=== PATIENT | male | born 1935 | race Caucasian/White ===

== ENCOUNTER 2022-01-01 09:41 | Emergency (ER) | payer MEDICARE, SELFPAY ==
[2022-01-01 09:45] VITALS: BP 156/72; PULSE 77; RESP 18; TEMP 36.6; O2SAT 97
--- NOTE | 2022-01-01 10:53 | ED_ITS ---
HPI - Epistaxis General Chief complaint: Nasal Problem Stated complaint: Epistaxis Time Seen by Provider: 01/01/22 10:43 Source: patient and EMS Mode of arrival: EMS History of Present Illness HPI Narrative: Patient is an 86-year-old male history of hypertension diabetes on aspirin presenting today with epistaxis. He said it started this morning around 6:00 a.m. she had his 's nasal plant she has been using. Every time he tried ta steven off it started bleeding again. He used cotton ball and put up his left nostril. The clamp is now been on in the emergency department for 1 hour. He denies any blood dripping down his throat. He has not previously had nosebleeds he has not taken his blood pressure medications this morning either. Related Data Home Medications Medication Instructions Recorded Confirmed amlodipine 10 mg tablet mg 01/01/22 aspirin 325 mg tablet mg 01/01/22 atorvastatin 10 mg tablet mg 01/01/22 carvedilol 25 mg tablet mg 01/01/22 glipizide 5 mg tablet, extended mg PO 01/01/22 release 24 hr isosorbide mononitrate 30 mg mg PO 01/01/22 tablet,extended release 24 hr losartan 100 mg tablet mg 01/01/22 metformin 500 mg tablet mg 01/01/22 Allergies Allergy/AdvReac Type Severity Reaction Status Date / Time No Known Drug Allergies Allergy Verified 01/01/22 10:15 Review of Systems Review of Systems Narrative: GENERAL: Denies chills,fever HEENT: See HPI RESPIRATORY: Denies dyspnea, cough, wheezing CARDIOVASCULAR: Denies chest pain, palpitations GASTROINTESTINAL: Denies nausea, vomiting MUSCULOSKELETAL: Denies extremity pain, injury SKIN: No rash, no laceration, no pruritus NEUROLOGIC: Denies weakness, dizziness, headache, numbness 8 point review of systems is negative except for those stated above and HPI Patient History Medical History Diabetes Hypertension Social History Smoking Status: Never smoker Smoking Status: Never smoker alcohol intake frequency: holidays/special occasions only Substance Use Type: does not use Exam Initial Vital Signs Initial Vital Signs: Vital Signs Temperature 97.8 F 01/01/22 09:45 Pulse Rate 77 01/01/22 09:45 Respiratory Rate 18 01/01/22 09:45 Blood Pressure 156/72 H 01/01/22 09:45 Pulse Oximetry 97 01/01/22 09:45 Oxygen Delivery Method 01/01/22 09:45 GENERAL: Well-appearing 86-year-old male HEENT: Head atraumatic,EOMI, pupils reactive, face symmetric, moist mucous membranes NOSE: The nasal clamp is removed no epistaxis CARDIOVASCULAR: Regular rate and rhythm without murmurs, rubs or gallops. RESPIRATORY: Breath sounds equal bilaterally, no wheezes rales or rhonchi. ABDOMEN: Soft, nontender. Normoactive bowel sounds all 4 quadrants. No guarding or rebound. EXTREMITIES: Normal range of motion, no clubbing or edema. Neurovascularly intact NEUROLOGICAL: Alert and oriented x4 SKIN: Warm, dry, no laceration, no petechiae, no rashes or lesions. Course Vital Signs Vital signs: Vital Signs - 8 hr 01/01/22 09:45 01/01/22 11:34 Temperature 97.8 F Pulse Rate 77 77 Respiratory Rate 18 18 Blood Pressure 156/72 H 147/92 H Pulse Oximetry 97 98 Oxygen Delivery Method Room Air Room Air MDM - Epistaxis MDM Narrative Medical decision making narrative: Patient has had clamp on for some time. It is removed I have examined both nostrils there is no active bleeding remains off and stable. He is drinking fluid. Discussed what to do if it this should happen again and things to prevent it. At this time no further intervention from the emergency department Discharge Plan Departure Patient Disposition: Home Clinical Impression: Epistaxis Instructions: DI for Nosebleed Activity Restrictions/Additional Instructions: *You have been diagnosed with epistaxis *What to do: Nosebleed today is probably due from dry air, recommend using Vaseline or antibiotic ointment in both nares 1 or 2 times daily humidifier may also help. If nosebleed she started again use nasal clamp. *Continue to take medications as directed *Follow up with your primary care provider in 2-3 days or call [phone] *Return to ER if you should have persistent nose bleed slightly recommend for 60 minute or any new, worsening or concerning symptoms Prescriptions: No Action metformin 500 mg tablet carvedilol 25 mg tablet atorvastatin 10 mg tablet isosorbide mononitrate 30 mg tablet extended release 24 hr PO glipizide 5 mg tablet extended release 24hr PO amlodipine 10 mg tablet losartan 100 mg tablet aspirin 325 mg Tablet Referrals: Maggie Pleitez PA-C [Primary Care Provider] - Visit Report Forms: Patient Portal/API
--- NOTE | 2022-01-01 11:32 | PC.NURSE ---
Dr. Cuevas assessed patient prior to my arrival. first contact is discharge with patient.
[2022-01-01 11:34] VITALS: BP 147/92; PULSE 77; RESP 18; O2SAT 98
== END 2022-01-01 11:35 | disposition home or self-care (01) ==
PROVIDERS: Emergency Provider Emergency Medicine; PCP Physician Assistant
DX: R04.0 Epistaxis (principal)
CPT/HCPCS: 99281

== ENCOUNTER 2022-01-10 13:51 | Emergency (ER) | payer MEDICARE, SELFPAY ==
--- NOTE | 2022-01-10 13:52 | DI.RAD.S_ITS ---
PROCEDURE: XR CHEST 1V INDICATIONS: chest pain TECHNIQUE: One view of the chest was acquired. COMPARISON: [facility], CR, XR CHEST 1 VIEW, 09/16/2021, 11:52. [facility], CR, CHEST 2 VIEW, 08/16/2015, 10:57. FINDINGS: Surgical changes and devices: None. Lungs and pleura: Mild hazy opacity at the left lung base. No pleural effusions or pneumothorax. Mediastinum: Mediastinal contours appear normal. Heart size is at the upper limits of normal. Bones and chest wall: No suspicious bony lesions. Overlying soft tissues appear unremarkable. IMPRESSION: Mild hazy opacity at the left lung base. Favor atelectasis over pneumonia. Dictated by: Cecil Botello M.D. on 01/10/2022 at 14:32 Approved by: Cecil Botello M.D. on 01/10/2022 at 14:34
[2022-01-10 14:08] LABS: Add Manual Diff / Slide Review NO; Basophils Absolute Auto 0 /uL (0-100); Basophils Percent Auto 0.7 % (0-2); Eosinophils Absolute Auto 300 /uL (0-450); Eosinophils Percent Auto 5.5 % (2-4); Hematocrit 31.9 % (41-53); Hemoglobin 11.2 g/dL (13.5-17.5); Lymphocytes Absolute Auto 900 /uL (1100-4500); Lymphocytes Percent Auto 15.2 % (25-40); Mean Corpuscular HGB Conc 35.1 % (30-36); Mean Corpuscular Hemoglobin 34.4 PG (26-34); Monocytes Absolute Auto 1000 /uL (0-900); Monocytes Percent Auto 17.4 % (3-14); Neutrophils Absolute Auto 3600 /uL (1500-7000); Neutrophils Percent Auto 61.2 % (50-75); Platelet Count 232 X10^3/uL (150-400); Red Blood Cell Count 3.25 X10^6/uL (4.5-5.9); White Blood Cell Count 5.9 X10^3/uL (4.5-11.0)
[2022-01-10 14:28] LABS: HCO3 VBG 20 mmol/L (23-28); Oxygen Saturation VBG 99 % (70-75); PCO2 VBG 34.8 mmHg (45-50); PO2 VBG 169 mmHg (35-45); Total CO2 VBG 21 mmol/L (24-29); pH VBG 7.36 (7.33-7.43)
[2022-01-10 14:30] LABS: HEMOLYSIS < 15 (0-50)
[2022-01-10 14:37] LABS: Alanine Aminotransferase 19 IU/L (<50); Albumin 4.3 g/dL (3.5-5.0); Albumin Globulin Ratio 1.6 (1.0-2.8); Alkaline Phosphatase 57 U/L (38-126); Aspartate Aminotransferase 21 IU/L (17-59); Bilirubin Total 0.3 mg/dL (0.2-1.3); Blood Urea Nitrogen 31 mg/dL (9-20); Calcium 9.1 mg/dL (8.4-10.2); Carbon Dioxide 19 mmol/L (22-32); Chloride 97 mmol/L (98-107); Creatine Kinase 66 U/L (55-170); Estimated Glomerular Filt Rate > 60 mL/min (>60); Globulin 2.7 g/dL (1.7-4.1); Glucose 212 mg/dL (80-110); Lipase 201 U/L (23-300); Potassium 5.1 mmol/L (3.4-5.1); Sodium 128 mmol/L (137-145)
[2022-01-10 14:48] LABS: Troponin I < 0.012 ng/mL (0.01-0.034)
[2022-01-10] MEDS: SODIUM CHLORIDE 0.9% 1,000 ML 500 ML IV (15:00)
--- NOTE | 2022-01-10 15:59 | ED.DIZZY ---
HPI - Dizziness General Chief Complaint: Dizziness Stated Complaint: High blood sugar,dizzy,diaphoretic Time Seen by Provider: 01/10/22 13:52 Source: patient, family (Daughter) and old records reviewed Mode of arrival: EMS Limitations: no limitations History of Present Illness HPI Narrative: This is an 86-year-old male with history of type 2 diabetes, hypertension, dyslipidemia with episode of feeling clammy, lightheaded without syncope, nauseated with no chest pressure or shortness of breath. Patient states he did not have any tunnel vision or blackening of his vision. He states he did have any emesis. No abdominal, black or flank pain. No new swelling of his extremities. No diarrhea, no constipation, no dysuria urgency or frequency. Patient states he is had episodes in the past most recently 6 weeks ago where his blood pressure was quite low he was kept overnight at [facility] had attempted stress testing but did not meet physical qualifications, he had a Holter monitor they have not received any results but have not been told that there was anything wrong. Had episodes a couple times over the past several years with 1 resulting in syncope. Patient states his glucose typically runs 130-140 at home. He is not had any new medication changes. He is not had any dosages changes. He denies any cardiac history no cardiac stents, no prior surgeries. No known drug allergies. No tobacco, alcohol once nightly, none today. No illicit. He is accompanied by his daughter. Related Data Home Medications Medication Instructions Recorded Confirmed amlodipine 10 mg tablet mg 01/01/22 aspirin 325 mg tablet mg 01/01/22 atorvastatin 10 mg tablet mg 01/01/22 carvedilol 25 mg tablet mg 01/01/22 glipizide 5 mg tablet, extended mg PO 01/01/22 release 24 hr isosorbide mononitrate 30 mg mg PO 01/01/22 tablet,extended release 24 hr losartan 100 mg tablet mg 01/01/22 metformin 500 mg tablet mg 01/01/22 Allergies Allergy/AdvReac Type Severity Reaction Status Date / Time No Known Drug Allergies Allergy Verified 01/01/22 10:15 Review of Systems Review of Systems ROS Unobtainable: All systems reviewed & are unremarkable except as noted in HPI and below Patient History Medical History Diabetes Hypertension Social History Smoking Status: Never smoker Smoking Status: Never smoker alcohol intake frequency: holidays/special occasions only Substance Use Type: does not use Exam Narrative Exam Narrative: GENERAL: Alert and oriented x three, elderly male in mild distress. No diaphoresis on exam. HEENT: Head normocephalic, atraumatic, EOMI, pupils reactive, face symmetric, moist mucous membranes NECK: Supple, full range of motion CARDIOVASCULAR: Regular rate and rhythm without murmurs, rubs or gallops. RESPIRATORY: Breath sounds equal bilaterally, no wheezes rales or rhonchi. Tachypnea accessory muscle use. ABDOMEN: Soft, nontender. Normoactive bowel sounds all 4 quadrants. No guarding or rebound, rigidity, no mass, no pulsatile mass. : No CVA tenderness EXTREMITIES: Normal range of motion, no clubbing or edema. Neurovascularly intact NEUROLOGICAL: Cranial nerves II through XII grossly intact. Moving all extremities SKIN: Warm, dry, no petechiae, no rashes or lesions. Initial Vital Signs Initial Vital Signs: Vital Signs Temperature 98.8 F 01/10/22 16:15 Pulse Rate 76 01/10/22 16:15 Respiratory Rate 18 01/10/22 16:15 Blood Pressure 139/70 01/10/22 16:15 Pulse Oximetry 97 01/10/22 16:15 Oxygen Delivery Method 01/10/22 16:15 Course Orders Ordered: Discontinued Medications Sodium Chloride (Normal Saline 0.9%) 1,000 mls @ 500 mls/hr IV BOLUS ONE Stop: 01/10/22 15:52 Last Infusion: 01/10/22 15:59 Dose: 0 mls/hr Documented By: Admin: 01/10/22 15:00 Dose: 500 mls/hr Documented By: EDITA Vital Signs Vital signs: Vital Signs - 8 hr 01/10/22 16:15 01/10/22 16:23 Temperature 98.8 F Pulse Rate 76 74 Respiratory Rate 18 16 Blood Pressure 139/70 137/75 Pulse Oximetry 97 97 Oxygen Delivery Method Room Air MDM - Dizziness Lab Data Result diagrams: 01/10/22 13:50 01/10/22 13:50 Labs: Lab Results 01/10/22 01/10/22 01/10/22 Range/Units 13:50 13:50 14:05 WBC 5.9 (4.5-11.0) X10^3/uL RBC 3.25 L (4.5-5.9) X10^6/uL Hgb 11.2 L (13.5-17.5) g/dL Hct 31.9 L (41-53) % MCV 98.0 (80-100) fL MCH 34.4 H (26-34) PG MCHC 35.1 (30-36) % RDW 14.0 (11.6-14.8) % Plt Count 232 (150-400) X10^3/uL Neut % (Auto) 61.2 (50-75) % Lymph % (Auto) 15.2 L (25-40) % [place] % (Auto) 17.4 H (3-14) % Eos % (Auto) 5.5 H (2-4) % Baso % (Auto) 0.7 (0-2) % Neut # (Auto) 3600 (9025-7255) /uL Lymph # (Auto) 900 L (0219-8766) /uL [place] # (Auto) 1000 H (0-900) /uL Eos # (Auto) 300 (0-450) /uL Baso # (Auto) 0 (0-100) /uL VBG pH 7.36 (7.33-7.43) VBG pCO2 34.8 L (45-50) mmHg VBG pO2 169 H (35-45) mmHg VBG HCO3 20 L (23-28) mmol/L VBG Total CO2 21 L (24-29) mmol/L VBG O2 Saturation 99 H (70-75) % VBG Base Excess -6.0 L (0-4) mmol/L Sodium 128 L (137-145) mmol/L Potassium 5.1 (3.4-5.1) mmol/L Chloride 97 L (98-107) mmol/L Carbon Dioxide 19 L (22-32) mmol/L BUN 31 H (9-20) mg/dL Creatinine 1.07 (0.66-1.25) mg/dL Estimated GFR > 60 (>60) mL/min BUN/Creatinine Ratio 29.0 H (6-22) Glucose 212 H (80-110) mg/dL Calcium 9.1 (8.4-10.2) mg/dL Total Bilirubin 0.3 (0.2-1.3) mg/dL AST 21 (17-59) IU/L ALT 19 (<50) IU/L Alkaline Phosphatase 57 (38-126) U/L Total Creatine Kinase 66 (55-170) U/L CK-MB (CK-2) TNP CK-MB (CK-2) Rel Index TNP Troponin I < 0.012 (0.01-0.034) ng/mL Total Protein 7.0 (6.3-8.2) g/dL Albumin 4.3 (3.5-5.0) g/dL Globulin 2.7 (1.7-4.1) g/dL Albumin/Globulin Ratio 1.6 (1.0-2.8) Lipase 201 (23-300) U/L Urine Color Urine Appearance Urine pH (4.5-8.0) Ur Specific [place] (1.000-1.035) Urine Protein (Negative) Urine Glucose (UA) (Negative) g/dL Urine Ketones (NEGATIVE) Urine Occult Blood (Negative) Urine Nitrate (Negative) Urine Bilirubin (NEGATIVE) Urine Urobilinogen (0.2) E.U./dL Ur Leukocyte Esterase (NEGATIVE) Urine RBC (0-5/HPF) Urine WBC (0-5/HPF) Urine Bacteria (None) Ur Culture Indicated? Ketones 0.40 H (<0.27) mmol/L SARS-CoV-2 (PCR) (Negative) 01/10/22 01/10/22 01/10/22 Range/Units 15:51 16:20 17:08 WBC (4.5-11.0) X10^3/uL RBC (4.5-5.9) X10^6/uL Hgb (13.5-17.5) g/dL Hct (41-53) % MCV (80-100) fL MCH (26-34) PG MCHC (30-36) % RDW (11.6-14.8) % Plt Count (150-400) X10^3/uL Neut % (Auto) (50-75) % Lymph % (Auto) (25-40) % [place] % (Auto) (3-14) % Eos % (Auto) (2-4) % Baso % (Auto) (0-2) % Neut # (Auto) (5646-6673) /uL Lymph # (Auto) (3000-9865) /uL [place] # (Auto) (0-900) /uL Eos # (Auto) (0-450) /uL Baso # (Auto) (0-100) /uL VBG pH (7.33-7.43) VBG pCO2 (45-50) mmHg VBG pO2 (35-45) mmHg VBG HCO3 (23-28) mmol/L VBG Total CO2 (24-29) mmol/L VBG O2 Saturation (70-75) % VBG Base Excess (0-4) mmol/L Sodium (137-145) mmol/L Potassium (3.4-5.1) mmol/L Chloride (98-107) mmol/L Carbon Dioxide (22-32) mmol/L BUN (9-20) mg/dL Creatinine (0.66-1.25) mg/dL Estimated GFR (>60) mL/min BUN/Creatinine Ratio (6-22) Glucose (80-110) mg/dL Calcium (8.4-10.2) mg/dL Total Bilirubin (0.2-1.3) mg/dL AST (17-59) IU/L ALT (<50) IU/L Alkaline Phosphatase (38-126) U/L Total Creatine Kinase (55-170) U/L CK-MB (CK-2) CK-MB (CK-2) Rel Index Troponin I < 0.012 (0.01-0.034) ng/mL Total Protein (6.3-8.2) g/dL Albumin (3.5-5.0) g/dL Globulin (1.7-4.1) g/dL Albumin/Globulin Ratio (1.0-2.8) Lipase (23-300) U/L Urine Color Yellow Urine Appearance Clear Urine pH 5.0 (4.5-8.0) Ur Specific [place] <=1.005 (1.000-1.035) Urine Protein Negative (Negative) Urine Glucose (UA) Trace H (Negative) g/dL Urine Ketones Negative (NEGATIVE) Urine Occult Blood Negative (Negative) Urine Nitrate Negative (Negative) Urine Bilirubin Negative (NEGATIVE) Urine Urobilinogen 0.2 (0.2) E.U./dL Ur Leukocyte Esterase Negative (NEGATIVE) Urine RBC None seen (0-5/HPF) Urine WBC None seen (0-5/HPF) Urine Bacteria None seen (None) Ur Culture Indicated? Cult not indicated Ketones (<0.27) mmol/L SARS-CoV-2 (PCR) Negative (Negative) Point of Care Testing Glucose POC 180 Imaging Data Chest x-ray: Radiologist's Impression: Close Chest X-Ray (Signed) Cecil Botello - 01/10/22 Launch?Image [address] [address] XRay Report Signed Patient: Raul Moreno Jr MR#: [id number] : 1935 Acct:[id number] Age/Sex: 86 / M Date of Service: 01/10/22 Loc: ED Accession Number: [id number] ?? Procedure: XR chest 1V Ordering Provider: Niya Pedraza D.O. PROCEDURE:? XR CHEST 1V ? INDICATIONS:? chest pain ? TECHNIQUE:? One view of the chest was acquired.? ? COMPARISON:? [facility], CR, XR CHEST 1 VIEW, 09/16/2021, 11:52.? [facility], CR, CHEST 2 VIEW, 08/16/2015, 10:57. ? FINDINGS:? ? Surgical changes and devices:? None.? ? Lungs and pleura:? Mild hazy opacity at the left lung base.? No pleural effusions or pneumothorax.? ? Mediastinum:? Mediastinal contours appear normal.? Heart size is at the upper limits of normal.? ? Bones and chest wall:? No suspicious bony lesions.? Overlying soft tissues appear unremarkable.? ? IMPRESSION:? Mild hazy opacity at the left lung base.? Favor atelectasis over pneumonia.? ? ? Dictated by: Cecil Botello M.D. on 01/10/2022 at 14:32 ? ? Approved by: Cecil Botello M.D. on 01/10/2022 at 14:34? ECG Data Attestation: I personally reviewed and interpreted this ECG as follows: Prior ECG tracings: not available for review Interpretation: Yet sinus rhythm with first-degree AV block, incomplete right bundle-branch. Rate of 65 [place] 210 QRS of 102 and QTC of 416. No acute ST changes appreciated. No priors for comparison. MDM Narrative Medical decision making narrative: This is an 86-year-old male who comes emergency department with episode of lightheadedness, diaphoresis and nausea that resolved. Patient is mildly hyperglycemic, no signs of DKA. No obvious cardiac, infectious or pulmonary causes found her his symptoms. Chest x-ray showed questionable pneumonia versus atelectasis but patient has been completely asymptomatic after discussion he defers starting any oral antibiotics when we discussed risks versus benefits. Patient had some episodes in the past which have been spaced out he has seen Cardiology for this as well. Discussed next steps, plans for follow-up to evaluate more fully as an outpatient all questions answered. Discharge Plan Departure Patient Disposition: Home Clinical Impression: Blood glucose elevated Activity Restrictions/Additional Instructions: Follow-up with your physician for recheck. No clear cause for your episodes has been found today. Talk with your physician about next steps for workup. Your glucose was somewhat elevated today but has improved during your stay. You may continue your home medications as prescribed Please return for fevers, new chest pain, shortness of breath, recurrent episodes, persistent vomiting, new swelling extremities, passing out or other new or concerning symptoms. Prescriptions: No Action metformin 500 mg tablet carvedilol 25 mg tablet atorvastatin 10 mg tablet isosorbide mononitrate 30 mg tablet extended release 24 hr PO glipizide 5 mg tablet extended release 24hr PO amlodipine 10 mg tablet losartan 100 mg tablet aspirin 325 mg Tablet Referrals: Maggie Pleitez PA-C [Primary Care Provider] - Visit Report Forms: Patient Portal/API
[2022-01-10 16:03] LABS: Appearance Urine UA CLEAR; Bilirubin Urine UA NEGATIVE (NEGATIVE); Color Urine UA YELLOW; Glucose Urine UA TRACE g/dL (Negative); Ketones Urine UA NEGATIVE (NEGATIVE); Leukocyte Esterase Urine UA NEGATIVE (NEGATIVE); Nitrite Urine UA NEGATIVE (Negative); Occult Blood Urine UA NEGATIVE (Negative); Protein Urine UA NEGATIVE (Negative); Specific Gravity Urine UA <=1.005 (1.000-1.035); Urobilinogen Urine UA 0.2 E.U./dL (0.2)
[2022-01-10 16:15] VITALS: BP 139/70; PULSE 76; RESP 18; TEMP 37.1; O2SAT 97; BMI 26.5
[2022-01-10 16:23] VITALS: BP 137/75; PULSE 74; RESP 16; O2SAT 97
[2022-01-10 16:41] LABS: Bacteria Urine None Seen; Culture Indicated Urine Cult Not Indicated; RBC Urine None Seen (0-5/HPF); WBC Urine None Seen (0-5/HPF)
[2022-01-10 16:59] LABS: COVID19 -Nasal RAPID Negative (Negative)
[2022-01-10 17:23] VITALS: BP 146/73; PULSE 74; RESP 18; TEMP 36.1; O2SAT 96
[2022-01-10 18:51] VITALS: BP 135/70; PULSE 63; RESP 18; O2SAT 99
[2022-01-10 18:52] LABS: Troponin I < 0.012 ng/mL (0.01-0.034)
== END 2022-01-10 19:07 | disposition home or self-care (01) ==
PROVIDERS: Emergency Provider Emergency Medicine; PCP Physician Assistant
DX: E11.65 Type 2 diabetes mellitus with hyperglycemia (principal); R07.9 Chest pain, unspecified; Z20.822 Contact with and (suspected) exposure to COVID-19
CPT/HCPCS: 36415; 71045; 80053; 81001; 82009; 82550; 82805; 82962; 83690; 84484; 85025; 87635; 93005; 93010; 96360; 99284; C9803

== ENCOUNTER 2022-02-10 13:08 | Emergency (ER) | payer MEDICARE, SELFPAY ==
[2022-02-10 13:20] VITALS: BP 124/64; PULSE 61; RESP 14; TEMP 36.6; O2SAT 97
[2022-02-10] MEDS: OXYMETAZOLINE NASAL SPRAY 15 ML 2 SPRAYS NASAL (13:31)
[2022-02-10 15:13] VITALS: BP 149/70; PULSE 63; RESP 16; O2SAT 99
--- NOTE | 2022-02-10 17:36 | ED.EPISTAXIS ---
HPI - Epistaxis General Chief complaint: Nasal Problem Stated complaint: nose bleed Time Seen by Provider: 02/10/22 17:35 Source: patient Mode of arrival: Ambulatory Limitations: no limitations History of Present Illness HPI Narrative: This is an 86-year-old male with type 2 diabetes, hypertension, dyslipidemia with nosebleed in the past week, patient states he has been using Vaseline inside his nose. Not had any nasal trauma, no picking, or other clear causes he does take an aspirin daily. He has not had chronic recurrent issues with nosebleeds. He and his family note they decreased his losartan by half recently because of hypotension. Patient denies any lightheadedness, no passing out, he was given Afrin here and a nasal clamp and feels like bleeding has but still has the clamp in place. Patient states it started on the right side and then started to come out of the left. Patient denies any nausea or vomiting. No chest pain or shortness of breath. No other GI or urinary symptoms. No atypical bruising or petechiae or bleeding. Patient denies any major surgeries. No known drug allergies. No tobacco, no alcohol or illicit. He is accompanied by his daughter today. Related Data Home Medications Medication Instructions Recorded Confirmed amlodipine 10 mg tablet mg 01/01/22 aspirin 325 mg tablet mg 01/01/22 atorvastatin 10 mg tablet mg 01/01/22 carvedilol 25 mg tablet mg 01/01/22 glipizide 5 mg tablet, extended mg PO 01/01/22 release 24 hr isosorbide mononitrate 30 mg mg PO 01/01/22 tablet,extended release 24 hr losartan 100 mg tablet mg 01/01/22 metformin 500 mg tablet mg 01/01/22 Allergies Allergy/AdvReac Type Severity Reaction Status Date / Time No Known Drug Allergies Allergy Verified 02/10/22 13:25 Review of Systems Review of Systems ROS Unobtainable: All systems reviewed & are unremarkable except as noted in HPI and below Patient History Medical History Diabetes Hypertension Social History Smoking Status: Never smoker Smoking Status: Never smoker alcohol intake frequency: holidays/special occasions only Substance Use Type: does not use Exam Narrative Exam Narrative: GEN: well nourished, well appearing male, alert and oriented x 3, patient appears to be in mild distress. HEENT: Atraumatic, pupils are equal round reactive to light, extraocular movements are intact, nares are clear bilaterally active or dried blood appreciated except 1 scant area just inside the left nare, TMs are clear with no fluid, there is no conjunctival pallor. Throat is clear without any exudates, erythema, tonsillar enlargement or uvular deviation HEART: Regular rate and rhythm without murmur, clicks, rubs. LUNGS:Lungs clear to auscultation, no wheezes, rales, crackles, chest moves symmetrically ABD:bowel sounds normal, soft, non-tender, no guarding, rebound, rigidity, no masses noted, no hepatosplenomegaly :No CVA tenderness MSCL: Non-tender, no muscle atrophy, muscles strength 5/5 upper and lower extremities, full range of motion, normal gait NEURO:CN 2-12 intact, sensation normal SKIN: No rash, erythema, no petechiae or ecchymosis. Initial Vital Signs Initial Vital Signs: Vital Signs Temperature 97.8 F 02/10/22 13:20 Pulse Rate 61 02/10/22 13:20 Respiratory Rate 14 02/10/22 13:20 Blood Pressure 124/64 02/10/22 13:20 Pulse Oximetry 97 02/10/22 13:20 Oxygen Delivery Method 02/10/22 13:20 Course Orders Ordered: Discontinued Medications Oxymetazoline HCl (Oxymetazoline Nasal [place] 15 Ml) 2 sprays NASAL NOW ONE Stop: 02/10/22 13:27 Last Admin: 02/10/22 13:31 Dose: 2 sprays Documented By: BENJAMIN Vital Signs Vital signs: Vital Signs - 8 hr 02/10/22 13:20 02/10/22 15:13 02/10/22 18:29 Temperature 97.8 F Pulse Rate 61 63 70 Respiratory Rate 14 16 18 Blood Pressure 124/64 149/70 H 140/78 Pulse Oximetry 97 99 99 Oxygen Delivery Method Room Air Room Air Room Air MDM - Epistaxis MDM Narrative Medical decision making narrative: This is a pleasant 86-year-old male who had nosebleed once earlier this week he has been using Vaseline. No active bleeding evaluated by been sitting for quite some time and had Afrin and nasal clamp in place that entire point. Patient has clear nares on check with no clear source. Was monitored for an additional half after clamp was taken off with no additional bleeding. Return precautions were discussed patient is on aspirin daily no other anticoagulants. No other high risk factors at this time. Return precautions as well as follow-up recommendations were discussed. Discharge Plan Departure Patient Disposition: Home Clinical Impression: Epistaxis, Diabetes mellitus Instructions: DI for Nosebleed Activity Restrictions/Additional Instructions: Follow-up with the ENT specialist provided. Follow directions as noted below. Return to emergency department if self-care directions do not work and urine able to stop the bleeding, or if you become lightheaded, began vomiting. Use medications as directed. Nosebleed self-care - With the right self-care, most nosebleeds stop on their own. Here's what you should do: 1. Blow your nose. This might increase the bleeding for a moment, but that's OK. 2. Sit or stand while bending forward a little at the waist. DO NOT lie down or tilt your head back. 3. Pinch the soft area towards the bottom of your nose, below the bone (picture 1). DO NOT metal sprayer protective coating the bridge of your nose between your eyes. That will not work. DO NOT press on just 1 side, even if the bleeding is only on 1 side. That will not work either. 4. Squeeze your nose shut for at least 15 minutes. (In children, squeeze for only 5 minutes.) Use a clock to time yourself. Do not release the pressure before the time is up to check if the bleeding has stopped. If you keep checking, you will ruin your chances of getting the bleeding to stop. If you follow these steps, and your nose keeps bleeding, repeat all the steps once more. Apply pressure for a total of at least 30 minutes (or 10 minutes for children). If you are still bleeding, go to the emergency room or an urgent care clinic. What if I get repeated nosebleeds? - Frequent nosebleeds can be caused by: Breathing dry air all the time Using cold or allergy nasal sprays too much Frequent colds Snorting drugs into your nose, such as cocaine In some cases, repeat nosebleeds can be a sign that your blood does not clot like it should. If that is the case, there are often other clues. For instance, people with clotting problems bruise easily and might bleed more than you would expect after a small cut or scrape. Nosebleed treatment - If you end up seeing a doctor or nurse for your nosebleed, he or she will make sure you can breathe OK. Then he or she will try to get the bleeding to stop. To do that, he or she might have to put a device or some packing material up your nose. What can I do to keep from getting nosebleeds? - You can: Use a humidifier (a machine that makes the air less dry) in your bedroom when you sleep Keep the inside of your nose moist with a nasal saline spray or gel Not pick your nose, or at least clip your nails before you do to avoid injury Prescriptions: No Action metformin 500 mg tablet carvedilol 25 mg tablet atorvastatin 10 mg tablet isosorbide mononitrate 30 mg tablet extended release 24 hr PO glipizide 5 mg tablet extended release 24hr PO amlodipine 10 mg tablet losartan 100 mg tablet aspirin 325 mg Tablet Referrals: Arian Reyes MD [Physician] - Maggie Pleitez PA-C [Primary Care Provider] -
--- NOTE | 2022-02-10 17:57 | PC.NURSE ---
Nose clamp removed by Dr. Pedraza, no bleeding noted.
[2022-02-10 18:29] VITALS: BP 140/78; PULSE 70; RESP 18; O2SAT 99
== END 2022-02-10 18:32 | disposition home or self-care (01) ==
PROVIDERS: Emergency Provider Emergency Medicine; PCP Physician Assistant
DX: R04.0 Epistaxis (principal); E11.9 Type 2 diabetes mellitus without complications
CPT/HCPCS: 99282; A9270